=== PATIENT | female | born 1965 | race American Indian/Alaskan Native ===

== ENCOUNTER 2017-06-04 01:04 | Emergency (ER) | payer BC, OTHER ==
[2017-06-04 01:04] VITALS: BMI 33.6
[2017-06-04 01:14] VITALS: TEMP 97.7
[2017-06-04] MEDS ORDERED: Apap-Butalbital-Caffeine 325-50-40mg Tab PO STA (01:33)
[2017-06-04] MEDS ORDERED: Apap-Butalbital-Caffeine 325-50-40mg Tab ONE ×2 (01:45→01:47)
[2017-06-04 01:50] LABS: BASO # 0.1 K/uL (0.0-0.2); BASO % 1.1 % (0.0-2.0); EOS # 0.2 K/uL (0.0-0.7); EOS % 2.8 % (0.0-4.0); HEMOGLOBIN 12.4 g/dL (11.0-16.0); LYMPH # 3.3 K/uL (1.0-4.3); LYMPH % 46.5 % (20.0-40.0); MEAN CELL VOLUME 81.9 fL (81.0-99.0); MEAN CORPUSCULAR HEMOGLOBIN 27.1 pg (27.0-31.0); MEAN CORPUSCULAR HGB CONC 33.1 g/dL (33.0-37.0); MEAN PLATELET VOLUME 9.3 fL (7.2-11.7); MONO # 0.4 K/uL (0.0-0.8); MONO % 5.9 % (0.0-10.0); NEUT # 3.1 K/uL (1.8-7.0); NEUT % 43.7 % (50.0-75.0); RBC 4.59 Mil/uL (3.80-5.20); RED CELL DISTRIBUTION WIDTH 13.9 % (11.5-14.5); WHITE BLOOD COUNT 7.1 K/uL (4.8-10.8)
[2017-06-04 01:58] LABS: PROTHROMBIN TIME 10.9 SECONDS (9.7-12.2)
[2017-06-04 02:48] LABS: CALCIUM 9.3 mg/dl (8.6-10.4); GFR AFRICAN-AMERICAN > 60; GFR NON-AFRICAN AMERICAN > 60
--- NOTE | 2017-06-04 02:49 | CT ---
EXAM: CT Head Without Intravenous Contrast CLINICAL HISTORY: 52 years old, female; Pain; Headache; Patient HX: 11-04-13 and 02-10-12 images sent; Additional info: Occipital headache, hypertension TECHNIQUE: Axial computed tomography images of the head/brain without intravenous contrast. All CT scans at this facility use one or more dose reduction techniques, viz.: automated exposure control; ma/kV adjustment per patient size (including targeted exams where dose is matched to indication; i.e. head); or iterative reconstruction technique. 348 images are submitted. Coronal and sagittal reformatted images were created and reviewed. Axial reformatted images were created and reviewed. COMPARISON: No relevant prior studies available. FINDINGS: Brain: Mild Cerebral and cerebellar volume loss. Patchy hypodensity is seen in the periventricular and subcortical white matter. No hemorrhage. Ventricles: Unremarkable. No ventriculomegaly. Bones/joints: Unremarkable. No acute fracture. Soft tissues: Fatty infiltration of parotid glands. Vasculature: Vascular calcifications. Sinuses: Unremarkable. No acute sinusitis. Mastoid air cells: Unremarkable. No mastoid effusion. IMPRESSION: No evidence of an acute intracranial hemorrhage, midline shift or mass effect is identified.
[2017-06-04 02:51] LABS: ALB/GLOB RATIO 1.1 (1.0-2.1); ALBUMIN 4.3 g/dL (3.5-5.0); ALT/SGPT 21 U/L (9-52); AST/SGOT 44 U/L (14-36); BLOOD UREA NITROGEN 11 mg/dL (7-17); MAGNESIUM 1.9 mg/dL (1.6-2.3)
--- NOTE | 2017-06-04 02:59 | C.PDOC ---
Time Seen by Provider: 06/04/17 01:23 Chief Complaint (Nursing): Headache History Per: Patient Onset/Duration Of Symptoms: Days (1), Gradual Current Symptoms Are (Timing): Still Present Severity: Moderate Quality: "Pain" Additional History Per: Prior Records Past Medical History Reviewed: Historical Data, Nursing Documentation, Vital Signs Vital Signs: Last Vital Signs Temp 97.7 F 06/04/17 01:09 Pulse 71 06/04/17 04:10 Resp 18 06/04/17 04:10 BP 143/79 06/04/17 04:10 Pulse Ox 97 06/04/17 04:10 - Medical History PMH: HTN, Sleep Apnea (PT. WEARS CPAP MACHINE HS) - [facility] Procedures DPT ADMINISTRATION (09/12/14) INJECT/INFUSE NEC (12/22/12) Family History: States: Unknown Family Hx - Social History Hx Tobacco Use: Yes (QUIT 3 MOS AGO) Hx Alcohol Use: Yes Hx Substance Use: No - Immunization History Hx Tetanus Toxoid Vaccination: No Review Of Systems Except As Marked, All Systems Reviewed And Found Negative. Constitutional: Negative for: Fever, Weakness Cardiovascular: Negative for: Chest Pain Respiratory: Negative for: Shortness of Breath Gastrointestinal: Negative for: Vomiting, Abdominal Pain Skin: Negative for: Rash Neurological: Positive for: Headache. Negative for: Weakness, Numbness, Incoordination, Change in Speech, Confusion, Seizures, Altered Mental Status, Dizziness Physical Exam - Physical Exam Appears: Non-toxic, No Acute Distress Skin: Normal Color, Warm, Dry, No Rash Head: Atraumatic, Normacephalic Eye(s): bilateral: Normal Inspection, PERRL, EOMI Neck: Normal ROM, Supple Cardiovascular: Rhythm Regular Respiratory: Normal Breath Sounds, No Accessory Muscle Use Gastrointestinal/Abdominal: Soft, No Tenderness Extremity: Normal ROM Neurological/Psych: Oriented x3, Normal Speech, Normal Cognition, No Cerebellar Signs, Normal Motor, Normal Sensation ED Course And Treatment - Laboratory Results Result Diagrams: 06/04/17 01:47 06/04/17 01:47 ECG: Interpreted By Me, Viewed By Me ECG Rhythm: Sinus Rhythm, Nonspecific Changes Rate From EC O2 Sat by Pulse Oximetry: 99 Pulse Ox Interpretation: Normal - CT Scan/US CT head Other Rad Studies (CT/US): Read By Radiologist, Radiology Report Reviewed CT/US Interpretation: IMPRESSION: No evidence of an acute intracranial hemorrhage, midline shift or mass effect. is identified. Progress Note: Pt feels much better and wants to go home. BP much improved. Reassessment Condition: Improved Progress - Interventions Interventions:: Observation - Medications Administered Oral: Other (Fioricet) Intravenous: NSAID - Data Reviewed Data Reviewed: Lab, Diagnostic imaging, Old records - Patient Status Patient status: Mostly improved - Continuity of Care Discussed patient case with:: Patient, ED Nurse - Patient Plan Patient Plan: Discharge, F/U with PCP, Continue present meds Disposition Counseled Patient/Family Regarding: Studies Performed, Diagnosis, Need For Followup, Rx Given - Disposition Disposition: HOME/ ROUTINE Disposition Time: 04:23 Condition: IMPROVED Additional Instructions: Follow up with your doctor within 1-2 days. Return to the ER if you develop weakness, numbness, vomiting, worsening of symptoms or if you have any other concerns. Prescriptions: Acetaminophen/Butalbital/Caf [Fioricet] 1 tab PO Q4 PRN #20 tab PRN Reason: Headache Instructions: Headache, Adult (DC) Forms: In [employer] (Hebrew) - Clinical Impression Clinical Impression: Headache, Hypertension
[2017-06-04 04:33] VITALS: BP 147/84; PULSE 67; RESP 20; O2SAT 97
--- NOTE | 2017-06-05 12:34 | CARD ---
APPROVED REPORT EKG Measurement Heart [id number] <Conclusion> Normal sinus rhythm Moderate voltage criteria for LVH, may be normal variant Borderline ECG
== END 2017-06-04 04:35 | disposition home or self-care (01) ==
LOC: C.ER 01:04
DX: I10 Essential (primary) hypertension (principal); R51 Headache
CPT/HCPCS: 70450; 80053; 82948; 83735; 84484; 85025; 85610; 85730; 93005; 96374; 99285; J1885